=== PATIENT | female | born 1955 | race Caucasian/White ===

== ENCOUNTER 2024-02-15 04:32 | Day surgery (SDC) | payer OTHER ==
[2024-02-10 12:07] VITALS: BMI 26.4
[2024-02-15] MEDS ORDERED: LIDOCAINE HCL/PF 1% SDV 5ML VIAL ONE (07:21)
[2024-02-15] MEDS ORDERED: BUPIVACAINE HCL/PF 0.75% 10 ML VIAL ONE (07:22)
[2024-02-15] MEDS ORDERED: LIDOCAINE HCL/PF 2% SDV 5ML VIAL ONE (07:22)
[2024-02-15] MEDS ORDERED: OFLOXACIN 0.3% OPHTHALMIC SOLUTION 5 ML BOTTLE ONE (07:53)
[2024-02-15] MEDS ORDERED: KETOROLAC TROMETHAMINE 0.5% EYE DROP 1 DROP DROPS ONE (07:53)
[2024-02-15] MEDS ORDERED: TROPICAMIDE 1% OPHTH SOLN 15 ML BOTTLE ONE (07:53)
[2024-02-15] MEDS ORDERED: CYCLOPENTOLATE HCL 1% OPHTH SOLN 2 ML BOTTLE ONE (07:53)
[2024-02-15] MEDS ORDERED: PHENYLEPHRINE 2.5% OPTHALMIC DROP 2ML BOTTLE ONE (07:53)
[2024-02-15] MEDS ORDERED: ACETAMINOPHEN 325 MG TABLET (FP) PO PRN (08:03)
[2024-02-15] MEDS: KETOROLAC TROMETHAMINE 0.5% EYE DROP 1 DROP DROPS OP SCH (08:10)
[2024-02-15] MEDS: TROPICAMIDE 1% OPHTH SOLN 15 ML BOTTLE OP SCH (08:10)
[2024-02-15] MEDS: PHENYLEPHRINE 2.5% OPHTH SOLN 15 ML BOTTLE OP SCH (08:11)
[2024-02-15] MEDS: CYCLOPENTOLATE HCL 1% OPHTH SOLN 2 ML BOTTLE OP SCH (08:12)
[2024-02-15] MEDS: OFLOXACIN 0.3% OPHTHALMIC SOLUTION 5 ML BOTTLE OP SCH (08:13)
[2024-02-15] MEDS ORDERED: MIDAZOLAM HCL 2 MG/2 ML SINGLE DOSE VIAL ONE (10:13)
[2024-02-15] MEDS ORDERED: PROPOFOL 20 ML ONE (10:13)
[2024-02-15] MEDS: BUPIVACAINE HCL/PF 0.75% 10 ML VIAL NR ONE ×2 (10:18)
[2024-02-15] MEDS: LIDOCAINE HCL/PF 2% SDV 5ML VIAL PNB ONE ×2 (10:18)
[2024-02-15] MEDS: POVIDONE-IODINE 5% OPHTHALMIC PREP 30 ML SOLUTION OD ONE ×2 (10:21)
[2024-02-15] MEDS: LIDOCAINE HCL 1% PRESERVATIVE FREE - 30ML VIAL IJ ONE ×2 (10:22)
[2024-02-15] MEDS: TRYPAN BLUE 0.5 ML DISP.SYRIN IO ONE ×2 (10:28)
[2024-02-15] MEDS: HYALURONATE SODIUM 23 MG/1 ML SYRINGE IO ONE ×2 (10:29)
[2024-02-15] MEDS: BSS (NA/CA/MG/K) BALANCED SALT SOLUTION OPHTH SOLN 15 ML BOTTLE OD ONE ×2 (10:33)
[2024-02-15] MEDS: CHONDROITIN SU A/HYALUR SOD 1 KIT IO ONE ×2 (10:34)
[2024-02-15] MEDS: EPINEPHrine 1:1,000 1,000 MCG/ML ML IVPB ONE ×2 (10:47)
[2024-02-15 12:04] VITALS: BP 129/63; PULSE 92; RESP 20; TEMP 97.4
== END 2024-02-15 12:05 | disposition home or self-care (01) ==
LOC: JASU-SURG 04:32
PROVIDERS: ATTEND Ophthalmology
PROC: 08RJ3JZ Replacement of Right Lens with Synthetic Substitute, Percutaneous Approach (ICD-10-PCS; principal; 2024-02-15 10:00)
DX: H25.89 Other age-related cataract (principal)
CPT/HCPCS: 66984; V2632

== ENCOUNTER 2024-02-29 04:27 | Day surgery (SDC) | payer OTHER ==
[~2024-02-29 04:27] MED LIST: ACETAMINOPHEN 325 MG TABLET (FP) PO PRN
[2024-02-29] MEDS ORDERED: KETOROLAC TROMETHAMINE 0.5% EYE DROP 1 DROP DROPS ONE (08:10)
[2024-02-29] MEDS ORDERED: CYCLOPENTOLATE HCL 1% OPHTH SOLN 2 ML BOTTLE ONE (08:10)
[2024-02-29] MEDS ORDERED: PHENYLEPHRINE 2.5% OPTHALMIC DROP 2ML BOTTLE ONE (08:10)
[2024-02-29] MEDS ORDERED: EPINEPHrine/PF 1 MG/1 ML (1:1,000) AMPULE ONE (08:11)
[2024-02-29] MEDS ORDERED: OFLOXACIN 0.3% OPHTHALMIC SOLUTION 5 ML BOTTLE ONE (08:11)
[2024-02-29] MEDS ORDERED: TETRACAINE 0.5% OPHTH SOLN 2 ML BOTTLE ONE (08:11)
[2024-02-29] MEDS ORDERED: TROPICAMIDE 1% OPHTH SOLN 15 ML BOTTLE ONE (08:11)
[2024-02-29] MEDS ORDERED: POVIDONE-IODINE 5% OPHTHALMIC PREP 30 ML SOLUTION ONE (08:12)
[2024-02-29] MEDS: TROPICAMIDE 1% OPHTH SOLN 15 ML BOTTLE OP SCH (08:15)
[2024-02-29] MEDS: PHENYLEPHRINE 2.5% OPHTH SOLN 15 ML BOTTLE OP SCH (08:15)
[2024-02-29] MEDS: OFLOXACIN 0.3% OPHTHALMIC SOLUTION 5 ML BOTTLE OP SCH (08:15)
[2024-02-29] MEDS: KETOROLAC TROMETHAMINE 0.5% EYE DROP 1 DROP DROPS OP SCH (08:15)
[2024-02-29] MEDS: CYCLOPENTOLATE HCL 1% OPHTH SOLN 2 ML BOTTLE OP SCH (08:15)
[2024-02-29] MEDS ORDERED: LIDOCAINE HCL/PF 1% SDV 5ML VIAL ONE (08:30)
[2024-02-29] MEDS ORDERED: PROPOFOL 20 ML ONE (10:16)
[2024-02-29] MEDS ORDERED: MIDAZOLAM HCL 2 MG/2 ML SINGLE DOSE VIAL ONE (10:16)
[2024-02-29] MEDS: LIDOCAINE HCL/PF 2% SDV 5ML VIAL INF ONE ×2 (10:30)
[2024-02-29] MEDS: BUPIVACAINE HCL/PF 0.75% 10 ML VIAL RB ONE ×2 (10:30)
[2024-02-29] MEDS: POVIDONE-IODINE 5% OPHTHALMIC PREP 30 ML SOLUTION OS ONE ×2 (10:34)
[2024-02-29] MEDS: LIDOCAINE HCL 1% PRESERVATIVE FREE - 30ML VIAL IO ONE ×2 (10:37)
[2024-02-29] MEDS: BSS (NA/CA/MG/K) BALANCED SALT SOLUTION OPHTH SOLN 15 ML BOTTLE OS ONE ×2 (10:39)
[2024-02-29] MEDS: CHONDROITIN SU A/HYALUR SOD 1 KIT IO ONE ×2 (10:40)
[2024-02-29] MEDS: EPINEPHrine/PF 1 MG/1 ML (1:1,000) AMPULE IO ONE ×2 (10:44)
[2024-02-29 14:29] VITALS: BP 139/68; PULSE 89; RESP 18; TEMP 98.2
== END 2024-02-29 11:42 | disposition home or self-care (01) ==
LOC: JASU-SURG 04:27
PROVIDERS: ATTEND Ophthalmology
PROC: 08RK3JZ Replacement of Left Lens with Synthetic Substitute, Percutaneous Approach (ICD-10-PCS; principal; 2024-02-29 10:00)
DX: H26.9 Unspecified cataract (principal)
CPT/HCPCS: 66984; V2632